=== PATIENT | male | born 1940 | race Caucasian/White ===

== ENCOUNTER 2023-07-03 10:28 | Emergency (ER) | payer MEDICARE, BC, SELFPAY ==
[2023-07-03 10:38] VITALS: BP 137/68; PULSE 87; RESP 16; TEMP 36.9; O2SAT 99; BMI 22.3
--- NOTE | 2023-07-03 11:13 | ED_ITS ---
HPI - General Adult General Time Seen by Provider: 11:13 Date Seen: 07/03/23 Chief complaint: Extremity Pain/Injury, Lower Stated complaint: Rash on legs Time Seen by Provider: 07/03/23 11:05 Source: patient Mode of arrival: ambulatory Limitations: no limitations History of Present Illness HPI narrative: Kwasi is a 82 year old male with past medical history of hypertension presents to the emergency department via private care with lower extremity pain and rash. Patient states that about 5-6 weeks ago, he [place], he noticed some itching of his bilateral lower extremities, this resolved, but then noticed some increased redness and small ulcerations or bites that developed, the ulcerations look like little burrows, the the right lower extremity has them in a single file. No extension past the knee, he noticed some on his left lower extremity but not as severe, it is very itchy. Painful. Patient denies any fevers or chills. Since 5-6 weeks ago there has not been any extension. Patient had not had any travel to any other country, he is from [place], denies any numbness or tingling, no history of any peripheral neuropathy. Patient also wears cowboy boots and was wondering if that had something to do with this. No other concerns at this time. Related Data Home Medications Medication Instructions Recorded Confirmed lisinopril 10 1 tab PO 09/24/22 05/06/23 mg-hydrochlorothiazide 12.5 mg tablet Previous Rx's Medication Instructions Recorded cefadroxil 500 mg capsule 500 mg PO BID 7 days #14 caps 07/03/23 permethrin 5 % topical cream 1 applic topical Q14D 2 doses #60 07/03/23 grams triamcinolone acetonide 0.05 % 1 applic topical BID #110 grams 07/03/23 topical ointment Allergies Allergy/AdvReac Type Severity Reaction Status Date / Time Gadolinium-Containing Allergy Verified 07/03/23 10:41 Contrast Medi Review of Systems Status of ROS: Reports: 10 or more systems reviewed and unremarkable except as noted in History and below [facility] Social History Smoking Status: Former smoker Do you use any of these nicotine containing products: None Second hand tobacco smoke exposure: Yes How often do you have a drink containing alcohol: 2-3 times a week How many standard drinks containing alcohol do you have on a typical day: 1 or 2 How often do you have six or more drinks on one occasion: Never AUDIT-C Alcohol total score: 3 Non-prescribed substance use: denies use service: Yes Exam Narrative: Exam Narrative: General: No obvious distress, sitting comfortably HEENT: Pupils equal round reactive to light, extraocular muscles intact Muscle skeletal: Right lower extremity [id number], there is a linear, small ulcerations/burrows in a single file line. There is surrounding erythema mild circumferential swelling. No induration or fluctuance, no drainage from the lesions. Lower extremity: Minimal small ulcerations lower extremity, no surrounding erythema. Neuro: Alert awake and orientated Const: Vital Signs, click to edit/add: Vital Signs - 24 hr 07/03/23 10:38 Temperature 98.4 F Pulse Rate [Right Pulse Oximeter] 87 Respiratory Rate 16 Blood Pressure [Ri ght Upper Arm] 137/68 Pulse Oximetry 99 Oxygen Delivery Me thod Room Air Course Course ED Course: 11:30 AM: AIDET performed, vitals are normal, differential diagnosis includes contact dermatitis, bug bites, scabies, spider bites, allergic reaction, medication side effects, plan would be to give him Kenalog 0.1% cream to be applied twice daily over the next 7 days, likely treat with Duricef 500 mg b.i.d. over the next 7 days for likely developing cellulitis. Reevaluation(s) Time of Reevaluation #1: 13:56 Reevaluation #1: Plan to discharge, prescription for Kenalog cream 0.05% to be applied twice daily over the next 7 days, he was given Duricef 500 mg twice daily over the next 7 days, he can also use calamine lotion to the area, if no improvement he was given some permethrin cream 1%, application keep on 8-14 hours a may repeat in 2 weeks time, he should follow-up with her primary care provider over the next 7-10 days, return precautions given. Vital Signs Vital signs: Initial Vital Signs Temperature 98.4 F 07/03/23 10:38 Temperature Source Temporal Artery Scan 07/03/23 10:38 Pulse Rate 87 07/03/23 10:38 Pulse Rhythm Regular 07/03/23 10:38 Pulse Strength 3+ Normal 07/03/23 10:38 Respiratory Rate 16 07/03/23 10:38 Blood Pressure 137/68 07/03/23 10:38 Blood Pressure Mean 91 07/03/23 10:38 Blood Pressure Position Sitting 07/03/23 10:38 Pulse Oximetry 99 07/03/23 10:38 Oxygen Delivery Method Room Air 07/03/23 10:38 Vital Signs Temperature 98.4 F 07/03/23 10:38 Pulse Rate 87 07/03/23 10:38 Respiratory Rate 16 07/03/23 10:38 Blood Pressure 137/68 07/03/23 10:38 Pulse Oximetry 99 07/03/23 10:38 Oxygen Delivery Method Room Air 07/03/23 10:38 Temperature 98.4 F 07/03/23 10:38 Pulse Rate 87 07/03/23 10:38 Respiratory Rate 16 07/03/23 10:38 Blood Pressure 137/68 07/03/23 10:38 Pulse Oximetry 99 07/03/23 10:38 Oxygen Delivery Method Room Air 07/03/23 10:38 Medications Administered Medications: Discontinued Medications Generic Name Dose Route Start Last Admin Trade Name Agq PRN Reason Stop Dose Admin Triamcinolone Acetonide 1 applic 07/03/23 11:24 07/03/23 11:36 Triamcinolone Acetonide Cream 0.1 % TOPICAL 07/03/23 11:25 1 applic ONCE ONE Administration Discharge Plan Discharge Clinical Impression: Bug bite, Contact dermatitis Patient Disposition: Home, Self-Care Condition: Improved Instructions: Contact Dermatitis (ED) Additional Instructions: To apply Kenalog cream 0.1% twice daily over the next 7 days, Duricef 500 mg b.i.d. over the next 7 days for antibiotic coverage, can use calamine lotion as well, if no improvement follow-up with a primary care provider. Activity Level: No Restrictions Prescriptions: New triamcinolone acetonide 0.05 % ointment 1 applic topical BID Qty: 110 0RF cefadroxil 500 mg capsule 500 mg PO BID 7 Days Qty: 14 0RF permethrin 5 % cream 1 applic topical Q14D Qty: 60 0RF Rx Instructions: apply second treatment 14 days after first treatment if live lice remain No Action lisinopril-hydrochlorothiazide 10-12.5 mg tablet 1 tab PO Patient Comments: TAKE 1 TABLET BY MOUTH EVERY DAY Follow Up/Referrals: Misty Daniels MD [Primary Care Provider] - Stand Alone Forms: [employer] Info Instructions
[2023-07-03] MEDS: TRIAMCINOLONE ACETONIDE CREAM 0.1 % 1 APPLIC TOPICAL (11:36)
== END 2023-07-03 12:26 | disposition home or self-care (01) ==
PROVIDERS: Emergency Provider Student in an Organized Health Care Education/Training Program; PCP Family Medicine
DX: L25.9 Unspecified contact dermatitis, unspecified cause (principal)
CPT/HCPCS: 99283; 99284; A9270

== ENCOUNTER 2023-08-27 07:33 | Outpatient (CLI) | payer MEDICARE, BC, SELFPAY ==
--- NOTE | 2023-08-27 09:33 | W.ANESCHARGE ---
Anesthesia Charges Start Date/Time Anesthesia Start Date: 08/27/23 Anesthesia Start Time: 08:53 Stop Date/Time Anesthesia Stop Date: 08/27/23 Anesthesia Stop Time: 09:30 Summary Extremes of Age - Over 70 or under 1: [employer]
--- NOTE | 2023-08-27 09:36 | W.ANESCHARGE ---
Anesthesia Charges Start Date/Time Anesthesia Start Date: 08/27/23 Anesthesia Start Time: 08:53 Stop Date/Time Anesthesia Stop Date: 08/27/23 Anesthesia Stop Time: 09:30 Summary Extremes of Age - Over 70 or under 1: MDA
== END 2023-08-27 07:34 | disposition home or self-care (01) ==
PROVIDERS: PCP Family Medicine; Visit Provider Surgery
DX: Z12.11 Encounter for screening for malignant neoplasm of colon (principal); K63.5 Polyp of colon; K64.4 Residual hemorrhoidal skin tags; K64.8 Other hemorrhoids; Z98.0 Intestinal bypass and anastomosis status; Z85.038 Personal history of other malignant neoplasm of large intestine; K92.2 Gastrointestinal hemorrhage, unspecified
CPT/HCPCS: 00731; 00813; 43239; 45385; 88305; 99100; J2704

== ENCOUNTER 2023-12-26 05:41 | Emergency (ER) | payer MEDICARE, BC, SELFPAY ==
[2023-12-26 05:43] VITALS: BP 144/56; PULSE 65; RESP 18; TEMP 35.6; O2SAT 98; BMI 20.9
--- NOTE | 2023-12-26 05:49 | ED_ITS ---
HPI - Abdominal Pain General Time Seen by Provider: 05:49 Date Seen: 12/26/23 Chief Complaint: Abdominal Pain Stated Complaint: abdominal pain Time Seen by Provider: 12/26/23 05:49 Source: patient, family, RN notes reviewed and old records reviewed Mode of arrival: ambulatory Limitations: no limitations History of Present Illness HPI narrative: 83-year-old male who comes in today with abdominal pain. Patient has a history of colon cancer and resection. Patient notes dysuria and urinary frequency starting 4 days ago, seems little bit better today but still with dysuria. Denies hematuria, abdominal pain, flank pain, nausea, vomiting, fever. No diarrhea. Related Data Home Medications Medication Instructions Recorded Confirmed lisinopril 10 1 tab PO 09/24/22 05/06/23 mg-hydrochlorothiazide 12.5 mg tablet Previous Rx's Medication Instructions Recorded cefadroxil 500 mg capsule 500 mg PO BID 7 days #14 caps 07/03/23 permethrin 5 % topical cream 1 applic topical Q14D 2 doses #60 07/03/23 grams triamcinolone acetonide 0.05 % 1 applic topical BID #110 grams 07/03/23 topical ointment peg 3350-electrolytes 236 240 ml PO Q10M #4,000 mL 07/31/23 gram-22.74 gram-6.74 gram-5.86 gram solution (Golytely) cefdinir 300 mg capsule 300 mg PO BID 7 days #14 caps 12/26/23 Allergies Allergy/AdvReac Type Severity Reaction Status Date / Time Gadolinium-Containing Allergy Verified 07/03/23 10:[address] [facility] PFSH PFS Social History Smoking Status: Former smoker Do you use any of these nicotine containing products: None Second hand tobacco smoke exposure: Yes How often do you have a drink containing alcohol: 2-3 times a week How many standard drinks containing alcohol do you have on a typical day: 1 or 2 How often do you have six or more drinks on one occasion: Never AUDIT-C Alcohol total score: 3 Non-prescribed substance use: denies use service: Yes Exam Narrative: Exam Narrative: General: Well-developed and well-nourished, no acute distress Head: Atraumatic and normocephalic Eyes: Pupils are equal reactive, extraocular motions intact, conjunctiva clear ENT: External nose and ears are normal, posterior pharynx without erythema or exudate Neck: No midline cervical tenderness, full spontaneous range of motion the neck, trachea midline, no adenopathy Heart: Regular rate and rhythm no murmurs or thrills Lungs: Clear to auscultation bilaterally without wheezes or crackles Abdomen: Soft, nontender, nondistended with active bowel sounds Musculoskeletal: No tenderness, deformity, or edema Neurologic: Awake, alert, and oriented x3, no gross focal neurologic deficits, cranial nerves intact as tested Psych: Mood and affect are appropriate Skin: No rashes Const: Vital Signs, click to edit/add: Vital Signs - 24 hr 12/26/23 05:43 Temperature 96.0 F L Pulse Rate [Left P ulse Oximeter] 65 Respiratory Rate 18 Blood Pressure [Ri ght Upper Arm] 144/56 H Pulse Oximetry 98 Oxygen Delivery Me thod Room Air Course Course ED Course: Patient seen and examined, prior records reviewed. Reviewed prior colonoscopy from August of this year which showed and in anastomosis of the sigmoid colon, angioectasis in the ascending colon. Patient presents today with dysuria and urinary frequency. No secondary symptoms of nausea, vomiting, diarrhea, fever, flank pain or abdominal pain. Symptoms most consistent with urinary tract infection, consider also kidney stone or hematuria. Urinalysis ordered. Reevaluation(s) Time of Reevaluation #1: 06:13 Reevaluation #1: Urinalysis independently interpreted by me with white blood cells 10-25, positive nitrites consistent with infection. Patient will be started on Omnicef and discharged. Vital Signs Vital signs: Initial Vital Signs Temperature 96.0 F L 12/26/23 05:43 Temperature Source Temporal Artery Scan 12/26/23 05:43 Pulse Rate 65 12/26/23 05:43 Pulse Rhythm Regular 12/26/23 05:43 Respiratory Rate 18 12/26/23 05:43 Blood Pressure 144/56 H 12/26/23 05:43 Blood Pressure Mean 85 12/26/23 05:43 Blood Pressure Position Sitting 12/26/23 05:43 Pulse Oximetry 98 12/26/23 05:43 Oxygen Delivery Method Room Air 12/26/23 05:43 Vital Signs Temperature 96.0 F L 12/26/23 05:43 Pulse Rate 65 12/26/23 05:43 Respiratory Rate 18 12/26/23 05:43 Blood Pressure 144/56 H 12/26/23 05:43 Pulse Oximetry 98 12/26/23 05:43 Oxygen Delivery Method Room Air 12/26/23 05:43 Temperature 96.0 F L 12/26/23 05:43 Pulse Rate 65 12/26/23 05:43 Respiratory Rate 18 12/26/23 05:43 Blood Pressure 144/56 H 12/26/23 05:43 Pulse Oximetry 98 12/26/23 05:43 Oxygen Delivery Method Room Air 12/26/23 05:43 MDM - Abdominal Pain Lab Data Labs: Lab Results 12/26/23 Range/Units 05:55 Urine Color Yellow (Yellow) Urine Appearance Cloudy A (Clear) Urine pH 5.5 (5.0-8.5) Ur Specific [place] 1.020 (1.000-1.030) Urine Protein 2+ A (Negative) Urine Glucose (UA) Negative (Negative) Urine Ketones Negative (Negative) Urine Blood 2+ A (Negative) Urine Nitrite Positive A (Negative) Urine Bilirubin Negative (Negative) Urine Urobilinogen 0.2 (0.2-1.0) Ur Leukocyte Esterase 2+ A (Negative) Urine RBC 2-5 A (0-2) Urine WBC 10-25 A (0-5) Ur Squamous Epith Cells Moderate A (None-Few) Urine Bacteria Moderate A (None) Discharge Plan Discharge Clinical Impression: Acute lower UTI Patient Disposition: Home, Self-Care Condition: Stable Instructions: Urinary Tract Infection in Men (DC) Additional Instructions: Regular diet, make sure you are drinking plenty of fluid Take antibiotics as prescribed Follow-up with your primary care doctor in 7-10 days for recheck Activity Level: No Restrictions Discharge Diet: Regular Prescriptions: New cefdinir 300 mg capsule 300 mg PO BID 7 Days Qty: 14 0RF Rx Instructions: Start on December 26 No Action lisinopril-hydrochlorothiazide 10-12.5 mg tablet 1 tab PO Patient Comments: TAKE 1 TABLET BY MOUTH EVERY DAY triamcinolone acetonide 0.05 % ointment 1 applic topical BID Qty: 110 0RF cefadroxil 500 mg capsule 500 mg PO BID 7 Days Qty: 14 0RF permethrin 5 % cream 1 applic topical Q14D Qty: 60 0RF Rx Instructions: apply second treatment 14 days after first treatment if live lice remain peg 3350-electrolytes [Golytely] 236-22.74-6.74 -5.86 gram recon soln 240 ml PO Q10M Qty: 4000 0RF Rx Instructions: until fecal effluent is clear Follow Up/Referrals: Misty Daniels MD [Primary Care Provider] - Stand Alone Forms: [employer] Info Instructions
[2023-12-26 06:00] LABS: Appearance Urine Cloudy (Clear); Bilirubin Urine Negative (Negative); Blood Urine 2+ (Negative); Color Urine Yellow (Yellow); Glucose Urine Negative (Negative); Ketones Urine Negative (Negative); Leukocyte Esterase Urine 2+ (Negative); Nitrite Urine Positive (Negative); Protein Urine 2+ (Negative); Urobilinogen Urine 0.2 (0.2-1.0); pH Urine 5.5 (5.0-8.5)
[2023-12-26 06:08] LABS: Bacteria Urine Moderate; Squamous Epithelial Cell Urine Moderate (None-Few)
[2023-12-26] MEDS: LIDOCAINE 1% 5 ml (pf) 5 ML VIAL 2.1 ML IM (06:30)
[2023-12-26] MEDS: cefTRIAXone 1 GM VIAL IM (06:30)
== END 2023-12-26 06:31 | disposition home or self-care (01) ==
LOC: ED 06:29
PROVIDERS: Emergency Provider Family Medicine; PCP Family Medicine
DX: N39.0 Urinary tract infection, site not specified (principal)
CPT/HCPCS: 81001; 87086; 87186; 96372; 99283; J0696

== ENCOUNTER 2024-01-28 23:23 | Emergency (ER) | payer MEDICARE, BC, SELFPAY ==
--- NOTE | 2024-01-28 23:24 | ED_ITS ---
HPI - General Adult General Time Seen by Provider: 23:24 Date Seen: 01/28/24 Chief complaint: Lower Extremity Swelling Stated complaint: R leg swelling Time Seen by Provider: 01/28/24 23:23 Source: patient, RN notes reviewed and old records reviewed Mode of arrival: ambulatory Limitations: no limitations History of Present Illness HPI narrative: 83-year-old male who presents today with swelling of his right leg. Patient notes that he has had off and on swelling for years but for the last week or so increased swelling in the calf. Also says the bottom is but feels funny. No chest pain or shortness of breath, no known injury. Related Data Home Medications ?Medication ?Instructions ?Recorded ?Confirmed lisinopril 10 1 tab PO DAILY 09/24/22 01/28/24 mg-hydrochlorothiazide 12.5 mg tablet Allergies Allergy/AdvReac Type Severity Reaction Status Date / Time Gadolinium-Containing Allergy Verified 01/28/24 23:32 Contrast Medi PFS PFS Social History Smoking Status: Former smoker Do you use any of these nicotine containing products: None Second hand tobacco smoke exposure: Yes How often do you have a drink containing alcohol: 2-3 times a week How many standard drinks containing alcohol do you have on a typical day: 1 or 2 How often do you have six or more drinks on one occasion: Never AUDIT-C Alcohol total score: 3 Non-prescribed substance use: denies use service: Yes Exam Narrative: Exam Narrative: General: well nourished , NAD Head: Atraumatic and normocephalic ENT: External ears and external nose are normal Eyes: Conjunctiva clear, pupils are equal reactive, external ocular motions are intact Neck: Full spontaneous range of motion of the neck Lungs: No respiratory distress Musculoskeletal: No tenderness or deformity. Right leg slightly greater circumference the left with more prominent vascularity on that side. Dorsalis pedis pulse intact, strength and sensation intact Neurologic: No gross focal neurologic deficits Skin: No rashes Psych: Mood and affect are appropriate Const: Vital Signs, click to edit/add: Vital Signs - 24 hr 01/28/24 23:29 Temperature 98.6 F Pulse Rate [Right Pulse Oximeter] 67 Respiratory Rate 18 Blood Pressure [Ri ght Upper Arm] 145/79 H Pulse Oximetry 99 Oxygen Delivery Me thod Room Air Course Course ED Course: Patient seen examined. Reviewed prior emergency department visit from December 25 when patient was seen with urinary symptoms, found to have urinary tract infection and treated, patient also has a history of colon cancer and a bowel resection. Patient presents today with intermittent right leg swelling. He says this is been going on for years but more prominent the last week or so. On exam, the right leg slightly greater circumference in the left, sensation, pulses are intact. Suspect venous insufficiency, right lower extremity ultrasound ordered to evaluate for DVT or other emergent etiology of symptoms. If this is negative patient can be discharged follow up with primary care with recommendations for compression, elevation Reevaluation(s) Time of Reevaluation #1: 00:26 Reevaluation #1: Ultrasound of the right leg is negative for DVT, symptoms are most consistent with venous insufficiency and patient can follow up with primary care. Vital Signs Vital signs: Initial Vital Signs Temperature 98.6 F 01/28/24 23:29 Temperature Source Temporal Artery Scan 01/28/24 23:29 Pulse Rate 67 01/28/24 23:29 Respiratory Rate 18 01/28/24 23:29 Blood Pressure 145/79 H 01/28/24 23:29 Blood Pressure Mean 101 01/28/24 23:29 Blood Pressure Position Sitting 01/28/24 23:29 Pulse Oximetry 99 01/28/24 23:29 Oxygen Delivery Method Room Air 01/28/24 23:29 Vital Signs Temperature 98.6 F 01/28/24 23:29 Pulse Rate 67 01/28/24 23:29 Respiratory Rate 18 01/28/24 23:29 Blood Pressure 145/79 H 01/28/24 23:29 Pulse Oximetry 99 01/28/24 23:29 Oxygen Delivery Method Room Air 01/28/24 23:29 Temperature 98.6 F 01/28/24 23:29 Pulse Rate 67 01/28/24 23:29 Respiratory Rate 18 01/28/24 23:29 Blood Pressure 145/79 H 01/28/24 23:29 Pulse Oximetry 99 01/28/24 23:29 Oxygen Delivery Method Room Air 01/28/24 23:29 Discharge Plan Discharge Clinical Impression: Localized swelling of right lower leg Patient Disposition: Home, Self-Care Condition: Stable Instructions: Leg Edema (ED), Venous Insufficiency (DC) Additional Instructions: Elevate the legs as able. Follow-up with your primary care provider for further evaluation and treatment. Consider wearing a compression sock. Activity Level: No Restrictions Discharge Diet: Regular Prescriptions: No Action lisinopril-hydrochlorothiazide 10-12.5 mg tablet 1 tab PO DAILY Patient Comments: TAKE 1 TABLET BY MOUTH EVERY DAY Follow Up/Referrals: Misty Daniels MD [Primary Care Provider] - Stand Alone Forms: [employer] Info Instructions
[2024-01-28 23:29] VITALS: BP 145/79; PULSE 67; RESP 18; TEMP 37; O2SAT 99; BMI 20.9
--- NOTE | 2024-01-28 23:34 | CRLHL7_ITS ---
For Patients: As a result of the Century Cures Act, medical imaging exams and procedure reports are released immediately into your electronic medical record. You may view this report before your referring provider. If you have questions, please contact your health care provider. INDICATION: Leg pain and swelling. TECHNIQUE: Ultrasound venous duplex lower right extremity. Compression venous exam was performed using cedeño-scale, color Doppler, and spectral Doppler analysis. COMPARISON: None. FINDINGS: Deep veins: Sonographic imaging demonstrates the right common femoral, deep femoral, superficial femoral, popliteal, posterior tibial and the contralateral right common femoral veins to be fully compressible with normal color Doppler blood flow. Superficial veins: Greater saphenous vein is fully compressible. No popliteal cyst. IMPRESSION: Normal right lower extremity venous ultrasound, no sign of deep venous thrombosis. Dictated by Aaron Nava MD @ 01/29/2024 12:48:28 AM (Electronically Signed)
[2024-01-29 00:37] VITALS: BP 125/74; PULSE 70; RESP 18; TEMP 37; O2SAT 99
[2024-01-29 00:38] VITALS: BP 125/74; PULSE 70; RESP 18; TEMP 37
== END 2024-01-29 00:38 | disposition home or self-care (01) ==
LOC: ED 23:41
PROVIDERS: Emergency Provider Family Medicine; PCP Family Medicine
DX: R22.41 Localized swelling, mass and lump, right lower limb (principal)
CPT/HCPCS: 93971; 99283; 99284